=== PATIENT | male | born 1985 | race Caucasian/White ===

== ENCOUNTER 2016-11-09 09:29 | Emergency (ER) | payer OTHER ==
[~2016-11-09] VITALS: Ht 182.9 cm; Wt 96.8 kg
[2016-11-09 09:30] VITALS: BP 151/111
[2016-11-09] MEDS ORDERED: IBUPROFEN 200 MG TABLET ONE (09:58)
[2016-11-09] MEDS ORDERED: ACETAMINOPHEN 500 MG TABLET ONE (09:58)
[2016-11-09] MEDS ORDERED: IBUPROFEN 200 MG TABLET PO ONE (10:00)
[2016-11-09] MEDS ORDERED: ACETAMINOPHEN 325 MG TABLET PO ONE (10:00)
== END 2016-11-09 11:00 | disposition home or self-care (01) ==
LOC: ED 10:50
DX: S80.02XA Contusion of left knee, initial encounter (principal); S80.01XA Contusion of right knee, initial encounter; V43.53XA Car driver injured in collision with pick-up truck in traffic accident, initial encounter; Y93.89 Activity, other specified; Y99.8 Other external cause status; Y92.89 Other specified places as the place of occurrence of the external cause